=== PATIENT | male | born 1940 | race Caucasian/White ===

== ENCOUNTER → 2021-10-10 16:15 | Outpatient (CLI) | payer MEDICARE, SELFPAY ==
--- NOTE | ~2021-10-10 | MR_ITS ---
EXAMINATION: MR lumbar spine wo con DATE: 10/10/2021 16:53 INDICATION: Lumbar radiculopathy. TECHNIQUE: Magnetic resonance imaging (MRI) of the lumbar spine was performed without intravenous con trast. Sequences included sagittal T2-weighted FSE, sagittal T2-weighted FS FSE, sagittal T1-weighted FSE, and axial T2-weighted FSE. COMPARISON: CT abdomen and pelvis 09/03/2018 FINDINGS: There is a chronic burst fracture of L1 with greater than 4/5 loss of height, changes of ve rtebroplasty, retropulsion of bone 7 mm into central spinal canal, mild central canal stenosis, and f ocal kyphosis. There is mildly decreased disc height at T11-T12. The distal spinal cord signal intens ity is normal. The conus medullaris is at L1. The following disc levels are specifically discussed: L1-L2: The disc does not extend beyond the endplate margin. There is moderate bilateral facet joint o steoarthritis. There is no neural foraminal stenosis. There is no central canal stenosis. L2-L3: The disc is bulging. There is mild bilateral facet joint osteoarthritis. There is mild bilater al neural foraminal stenosis. There is mild central canal stenosis. L3-L4: The disc is bulging. There is moderate right and mild left facet joint osteoarthritis. There i s mild bilateral neural foraminal stenosis. There is no central canal stenosis. L4-L5: The disc is bulging and has an annular fissure. There is moderate bilateral facet joint osteoa rthritis. There is mild bilateral neural foraminal stenosis. There is no central canal stenosis. L5-S1: The disc does not extend beyond the endplate margin. There is severe bilateral facet joint ost eoarthritis. There is mild bilateral neural foraminal stenosis. There is no central canal stenosis. IMPRESSION: 1. Mild lumbar spondylosis. Reviewed, dictated and finalized at location A. IMPRESSION: 1. Mild lumbar spondylosis.
== END ==
PROVIDERS: PCP Internal Medicine; Visit Provider Nurse Practitioner Adult Health
DX: M54.16 Radiculopathy, lumbar region (principal); M47.816 Spondylosis without myelopathy or radiculopathy, lumbar region
CPT/HCPCS: 72148

== ENCOUNTER 2021-12-07 08:01 | Inpatient (IN) | payer MEDICARE, SELFPAY ==
[2021-12-07] VITALS (9 sets, daily range): BP systolic 123–129; BP diastolic 63–77; PULSE 70–112; RESP 15–26; TEMP 36.3–37; O2SAT 89–97; BMI 29.6
--- NOTE | ~2021-12-07 | XR_ITS ---
XR chest 1V portable DATE: 12/07/2021 08:17 INDICATION: Hypoxia. Covid-positive. TECHNIQUE: Portable AP chest on 12/07/2021 at 0811 hours COMPARISON: 04/29/2006 2 view chest FINDINGS: Normal heart size. There is minimal aortic tortuosity. No hilar or mediastinal enlargement. No pulmonary infiltrate or consolidation, pleural effusion or pulmonary vascular congestion or pneumo thorax is evident. Osteopenia. Degenerative change of the thoracic spine. IMPRESSION: No active cardiopulmonary disease Reviewed, dictated and finalized at location A.
--- NOTE | 2021-12-07 08:03 | ECG_ITS ---
Measurements Intervals [place] Rate: 111 P: 43 [place]: 145 QRS: -75 QRSD: 149 T: 37 QT: 351 QTc: 478 Interpretive Statements SINUS TACHYCARDIA RIGHT BUNDLE BRANCH BLOCK LEFT ANTERIOR FASCICU ABNORMAL ECGLAR BLOCK Electronically Signed On 12-07-2021 15:13:44 CDT by Bob Hinson D.O.
--- NOTE | 2021-12-07 08:04 | ED.WEAKNESS ---
HPI - Weakness General Chief complaint: Weakness Stated complaint: weakness, COVID+ Time Seen by Provider: 12/07/21 08:03 History of Present Illness HPI Narrative: 81-year-old male presents from home with recent diagnosis of COVID 1 week ago, he has been feeling weak, has not been able to keep anything down for the last few days, and having some mild shortness of breath, he finally came in because he was so weak that he fell about an hour ago at home, denies hitting his head, but did land on his back. He does have chronic back pain but otherwise denies pain anywhere else Related Data Allergies Allergy/AdvReac Type Severity Reaction Status Date / Time No Known Allergies Allergy Verified 12/07/21 08:15 Review of Systems Review of Systems: CONST: Occasional chills HEENT: No head trauma C/V: No chest pain RESP: Mild shortness of breath GI: Nausea, vomiting, diarrhea : No dysuria. M/S: Chronic back pain SKIN: No rash. NEURO: No focal numbness or weakness PSYCH: [No depression] [facility] Past Medical History Medical History Parkinsons disease Surgical History Surgical History Hx of cholecystectomy Social History Social History Smoking status: Never smoker Exam Narrative: EXAMINATION OF ORGAN SYSTEMS/BODY AREAS: Constitutional: Vital signs per nursing GENERAL:[No acute distress, non-toxic appearing.] HEAD: Normal with no signs of head trauma. EYES: EOMI, conjunctiva normal ENT: Hearing grossly intact LUNGS: Nonlabored breathing. No audible wheezing. HEART: [Regular rate and rhythm] ABD: [Soft], no tenderness to palpation EXT: Normal range of motion SKIN: No obvious large abrasions or bruising NEURO: [Alert. No gross focal sensory or strength deficits.] PSYCH: Normal affect Course Vital Signs Vital signs: Vital Signs Temperature 98.6 F 12/07/21 07:59 Pulse Rate 112 H 12/07/21 07:59 Respiratory Rate 20 12/07/21 07:59 Blood Pressure 127/77 12/07/21 07:59 Pulse Oximetry 89 L 12/07/21 07:59 Oxygen Delivery Room Air 12/07/21 07:59 Temperature 98.6 F 12/07/21 07:59 Pulse Rate 107 H 12/07/21 08:14 Respiratory Rate 26 H 12/07/21 08:14 Blood Pressure 127/77 12/07/21 07:59 Pulse Oximetry 92 12/07/21 08:14 Oxygen Delivery Nasal Cannula 12/07/21 08:13 Oxygen Flow Rate 2 12/07/21 08:13 MDM - Weakness MDM Narrative Medical decision making narrative: 81-year-old male presenting with generalized weakness and fall after recent diagnosis of COVID, vitals notable for hypoxia and tachycardia, suspect likely from COVID-pneumonia, also considered PE but patient denies any chest pain and I suspect hypoxia and tachycardia most likely due to dehydration and COVID-pneumonia. Doubt any acute intra-abdominal abnormality without tenderness to palpation. Patient is treated with IV fluids, Zofran, started on Decadron. He is placed on oxygen. Lab significant for elevated lactate, leukocytosis. By my interpretation chest x-ray findings do not seem significant enough to explain his hypoxia, he does have a right bundle branch block and right axis deviation on EKG though I do not prior to compare to, I do therefore add a D-dimer. Case discussed with hospitalist Dr Blackwell for admission. Differential Diagnosis Differential diagnosis: Likely sepsis, dehydration and other Lab Data Result diagrams: 12/07/21 08:08 12/07/21 08:08 Labs: Lab Results 12/07/21 12/07/21 12/07/21 Range/Units 08:08 08:08 08:08 WBC 14.5 H (4.5-10.0) K/mm3 RBC 4.72 (4.6-6.20) M/mm3 Hgb 14.2 (14.0-18.0) g/dL Hct 40.8 L (42.0-52.0) % MCV 86.4 (80-100) fl MCH 30.1 (26-34) pg MCHC 34.8 (32-36) g/dl RDW 12.7 (11.5-14.5) % Plt Count 194 (150-375) k/mm3 MPV 9.5 (7.4-10.4) fl Immature Gran
[2021-12-07 08:21] LABS: Basophils Percent Auto 0.2 % (0.2-1.2); Eosinophils Absolute Auto 0.1 K/mm3 (0-0.3); Eosinophils Percent Auto 0.6 % (0-4.4); Hematocrit 40.8 % (42.0-52.0); Hemoglobin 14.2 g/dL (14.0-18.0); Immature Granulocyte Absolute 0.06 K/mm3 (0.00-0.031); Immature Granulocyte Percent A 0.4 % (0-0.5); Lymphocytes Absolute Auto 2.49 K/mm3 (0.9-3.2); Lymphocytes Percent Auto 17.2 % (18.3-44.2); Mean Corpuscular HGB Conc 34.8 g/dl (32-36); Mean Corpuscular Hemoglobin 30.1 pg (26-34); Mean Corpuscular Volume 86.4 fl (80-100); Mean Platelet Volume 9.5 fl (7.4-10.4); Monocytes Absolute Auto 1.2 K/mm3 (0.1-0.6); Neutrophils Absolute Auto 10.6 K/mm3 (1.3-6.7); Neutrophils Percent Auto 73.6 % (45.5-73.1); Platelet Count Result 194 k/mm3 (150-375); Red Blood Count 4.72 M/mm3 (4.6-6.20); Red Cell Distribution Width 12.7 % (11.5-14.5); White Blood Count 14.5 K/mm3 (4.5-10.0)
[2021-12-07 08:28] LABS: Alanine Aminotransferase 23 U/L (6-50); Alkaline Phosphatase 69 U/L (38-126); Anion Gap 12 mmol/L (8-16); Aspartate Amino Transferase 24 U/L (17-59); Bilirubin,Total 1.7 mg/dL (0.2-1.3); Blood Urea Nitrogen 13 mg/dL (9-20); Calcium 8.4 mg/dL (8.4-10.2); Carbon Dioxide 23 mmol/L (22-30); Chloride 104 mmol/L (98-107); Estimated CRCL calculation 49 ml/min; Estimated Glomerular Filt Rate 58; Glucose 185 mg/dL (65-110); Potassium 3.8 mmol/L (3.4-5.0); Sodium 139 mmol/L (137-145)
[2021-12-07 08:29] LABS: Lactic Acid Reflex 3.5 mmol/L (0.7-2.0)
[2021-12-07] MEDS: SODIUM CHLORIDE 0.9% IV 1,000 ML 999 ML IV CONT (08:30)
[2021-12-07] MEDS: ONDANSETRON INJ 4 MG/2 ML VIAL IV PUSH (08:30)
[2021-12-07 08:40] LABS: Troponin I < 0.012 ng/mL (0.000-0.034)
[2021-12-07 08:57] LABS: SARS-CoV-2 RNA PCR Positive
[2021-12-07 09:10] LABS: D Dimer 0.34 ug/mL (<0.48)
[2021-12-07] MEDS: LACTATED RINGERS 1,000 ML 999 ML IV CONT (09:16)
--- NOTE | 2021-12-07 10:47 | PC.NURSE ---
pt declined straight cath for urine, attempted by giving urinal and has had 2 L of IV fluids
[2021-12-07 11:16] LABS: Reflex Lactic Acid Yes or No Add Lactic
[2021-12-07 12:00] LABS: Lactic Acid 1.1 mmol/L (0.7-2.0)
--- NOTE | 2021-12-07 12:42 | ADMGEN ---
This patient, Siri Greenfield, was admitted to [facility] Room 316-01 at 1100am. Patient transported by bed. Patient/family oriented to hospital policies and general routines including ID bracelet, bed and alarms, visiting hours, pain management, procedures, bathroom and other care routines, personal items, smoking policy, room service/diet, and visiting hours. Information on how to activate the Rapid Response Team has been discussed. Patient/Family are encouraged to report perceived risks to care and to ask questions if they do not understand what they are told or what they should do.
[2021-12-07 13:30] LABS: Procalcitonin 0.3 ng/mL
[2021-12-07] MEDS: ENOXAPARIN 40 MG/0.4 ML SYRINGE SUB-Q (17:25)
[2021-12-07] MEDS: CARBIDOPA/LEVODOPA 10/100 MG TABLET 1 TABLET PO (17:25)
[2021-12-07] MEDS: INSULIN ASPART (*BKC) 100 UNITS/ML SUB-Q (17:29)
[2021-12-07 17:39] LABS: Glucose Point of Care 310 mg/dl (65-105)
[2021-12-07 18:02] LABS: Appearance Urine Clear (Clear); Bilirubin Urine Negative (Negative); Blood Urine Negative (Negative); Color Urine Yellow (Yellow); Glucose Urine UA 2+ mg/dL (Negative); Ketones Urine Negative (Negative); Leukocyte Esterase Ur Negative LEU/UL (Negative); Nitrate Urine Negative (Negative); Protein Urine Negative (Negative); Specific Grav Ur 1.015 (1.001-1.035); pH Urine 5.5 (5.0-9.0)
[2021-12-07 18:14] LABS: Bacteria Urine Trace /hpf; Mucus Urine Rare /lpf; RBC Urine 0-2 /hpf (0-2); WBC Urine 0-3 /hpf
[2021-12-07 18:17] LABS: Add Urine Microscopic? YES
--- NOTE | 2021-12-07 18:30 | PM.IMHP ---
H&P: HPI History of Present Illness Date/Time: Patient was placed observation status for expected length of stay less than 23 hours for management, will plan to re-evaluate tomorrow for improvement. 12/07/21 18:30 Chief Complaint: Fall Narrative: Mr. Greenfield is a 81-year-old gentleman who presented to the emergency room with complaints of falling this morning. Patient states that he was walking and he was incontinent of urine and then slipped in his urine and fell. Patient does not recall hitting his head. Patient denies any loss of consciousness. Patient denied any lightheadedness, dizziness, syncopal, or near syncopal episodes preceding the event. Patient denies any chest discomfort or palpitations. Patient states he has had weakness for approximately 1 month. Patient states he was diagnosed with COVID 8 days ago. Per emergency room records patient was noted to have an oxygen saturation of 89% on room air by EMS and was placed on oxygen 2 L per nasal cannula. At this point time patient's oxygen saturations are 98% on oxygen at 2 L per nasal cannula. Patient is denying any shortness of breath. Patient states he has not had any fever chills at home. Patient states he has had a mild cough no sputum production. Patient denies any chest pain. Patient has a known history of hypertension, diabetes mellitus, hypothyroidism, Parkinson's disease, dyslipidemia and BPH. Review of Systems Review of Systems: A 12 point review of systems was completed patient all pertinent positive and negative per HPI the remainder are unremarkable. [facility] Past Medical History Medical History (Updated 12/07/21 @ 18:38 by Maribell Nicholson APRN) Diabetes mellitus GERD (gastroesophageal reflux disease) Hypertension Hypothyroidism Parkinsons disease Surgical History Surgical History Hx of cholecystectomy Family History Family History (Updated 12/07/21 @ 14:32 by Jacqueline Arciniega RN) Father Acute myocardial infarction Mother Acute myocardial infarction due to acute myocardial infarction Social History Social History Smoking status: Never smoker Alcohol intake: current Drinks per week: 2 Substance use: never Substance use type: does not use Spiritual care concerns: No Meds Home Medications and Allergies Home Medications Medication Instructions Recorded Confirmed Type aspirin 81 mg capsule 81 mg PO DAILY 12/07/21 12/07/21 History atorvastatin 40 mg tablet 40 mg PO DAILY 12/07/21 12/07/21 History bisacodyl 10 mg rectal suppository 10 mg RECTAL DAILY PRN Constipation 12/07/21 12/07/21 History (Dulcolax (bisacodyl)) carbidopa 10 mg-levodopa 100 mg 1 tablet PO BID 12/07/21 12/07/21 History tablet cholecalciferol (vitamin D3) 25 75 mcg PO DAILY 12/07/21 12/07/21 History mcg (1,000 unit) tablet (Vitamin D3) cyanocobalamin (vitamin B-12) 3,000 mcg PO DAILY 12/07/21 12/07/21 History 1,000 mcg tablet (Vitamin B-12) escitalopram oxalate 20 mg tablet 20 mg PO DAILY 12/07/21 12/07/21 History fexofenadine 180 mg tablet 180 mg PO DAILY 12/07/21 12/07/21 History finasteride 5 mg tablet 5 mg PO DAILY 12/07/21 12/07/21 History fluticasone propionate 50 1 spray intranasal Q12H 12/07/21 12/07/21 History mcg/actuation nasal spray,suspension gabapentin 600 mg tablet 600 mg PO DAILY 12/07/21 12/07/21 History insulin glargine 100 unit/mL (3 40 unit subcut DAILY 12/07/21 12/07/21 History mL) subcutaneous pen (Lantus Solostar U-100 Insulin) levothyroxine 88 mcg tablet 1 tablet PO DAILY 12/07/21 12/07/21 History lorazepam 0.5 mg tablet 0.5 mg PO BID PRN Anxiety 12/07/21 12/07/21 History melatonin 10 mg tablet 20 mg PO HS 12/07/21 12/07/21 History metformin 500 mg tablet 500 mg PO BID 12/07/21 12/07/21 History tamsulosin 0.4 mg capsule 1 cap PO DAILY 12/07/21 12/07/21 History trazodone 100 mg t
[2021-12-07 20:22] LABS: Glucose Point of Care 342 mg/dl (65-105)
[2021-12-07] MEDS: MELATONIN 5 MG TABLET 20 MG PO (21:05)
[2021-12-07] MEDS: FLUTICASONE PROPIONATE 0.05% NA SPR 16 GM BTL (*BKC) 1 SPRAY NASAL (21:05)
[2021-12-07] MEDS: traZODone HCL 50 MG TABLET 100 MG PO (21:05)
[2021-12-08] VITALS (7 sets, daily range): BP systolic 108–161; BP diastolic 49–91; PULSE 54–80; RESP 16–20; TEMP 36.1–36.9; O2SAT 93–96
[2021-12-08 05:58] LABS: Basophils Percent Auto 0.1 % (0.2-1.2); Eosinophils Percent Auto 0.1 % (0-4.4); Hematocrit 37.7 % (42.0-52.0); Immature Granulocyte Absolute 0.07 K/mm3 (0.00-0.031); Immature Granulocyte Percent A 0.5 % (0-0.5); Lymphocytes Absolute Auto 1.19 K/mm3 (0.9-3.2); Lymphocytes Percent Auto 8.7 % (18.3-44.2); Mean Corpuscular HGB Conc 34.5 g/dl (32-36); Mean Corpuscular Hemoglobin 30.2 pg (26-34); Mean Corpuscular Volume 87.5 fl (80-100); Mean Platelet Volume 10.5 fl (7.4-10.4); Monocytes Absolute Auto 0.8 K/mm3 (0.1-0.6); Neutrophils Absolute Auto 11.6 K/mm3 (1.3-6.7); Neutrophils Percent Auto 84.6 % (45.5-73.1); Platelet Count Result 180 k/mm3 (150-375); Red Blood Count 4.31 M/mm3 (4.6-6.20); Red Cell Distribution Width 12.8 % (11.5-14.5); White Blood Count 13.7 K/mm3 (4.5-10.0)
[2021-12-08] MEDS: LEVOTHYROXINE SODIUM 88 MCG TABLET PO (06:03)
[2021-12-08 07:12] LABS: Alanine Aminotransferase 17 U/L (6-50); Albumin Level 3.5 g/dL (3.5-5.1); Alkaline Phosphatase 56 U/L (38-126); Anion Gap 4 mmol/L (8-16); Aspartate Amino Transferase 22 U/L (17-59); Bilirubin,Total 0.8 mg/dL (0.2-1.3); Blood Urea Nitrogen 24 mg/dL (9-20); Calcium 7.8 mg/dL (8.4-10.2); Carbon Dioxide 31 mmol/L (22-30); Chloride 101 mmol/L (98-107); Estimated CRCL calculation 43 ml/min; Estimated Glomerular Filt Rate 58; Glucose 282 mg/dL (65-110); Magnesium 1.2 mg/dL (1.6-2.3); Potassium 5.4 mmol/L (3.4-5.0); Sodium 136 mmol/L (137-145)
[2021-12-08 07:51] LABS: Glucose Point of Care 290 mg/dl (65-105)
[2021-12-08] MEDS: INSULIN ASPART (*BKC) 100 UNITS/ML SUB-Q ×3 (08:38→17:06)
[2021-12-08] MEDS: CHOLECALCIFEROL 1,000 UNITS TABLET 3000 UNITS PO (08:41)
[2021-12-08] MEDS: LORATADINE 10 MG TABLET PO (08:41)
[2021-12-08] MEDS: CARBIDOPA/LEVODOPA 10/100 MG TABLET 1 TABLET PO ×2 (08:41→17:06)
[2021-12-08] MEDS: ASPIRIN 81 MG CHEWABLE TABLET PO (08:41)
[2021-12-08] MEDS: ATORVASTATIN 40 MG TABLET PO (08:41)
[2021-12-08] MEDS: GABAPENTIN 300 MG CAPSULE 600 MG PO (08:41)
[2021-12-08] MEDS: TAMSULOSIN HCL 0.4 MG CAPSULE PO (08:41)
[2021-12-08] MEDS: FINASTERIDE 5 MG TABLET PO (08:41)
[2021-12-08] MEDS: ESCITALOPRAM OXALATE 10 MG TABLET 20 MG PO (08:41)
[2021-12-08] MEDS: CYANOCOBALAMIN 1,000 MCG TABLET 3000 MCG PO (08:42)
[2021-12-08] MEDS: FLUTICASONE PROPIONATE 0.05% NA SPR 16 GM BTL (*BKC) 1 SPRAY NASAL ×2 (08:42→20:20)
[2021-12-08] MEDS: DEXAMETHASONE SOD PHOS INJ 4 MG/ML VIAL 6 MG IV PUSH (08:42)
[2021-12-08] MEDS: INSULIN GLARGINE (*BKC) 100 UNITS/ML 40 UNITS SUB-Q (08:43)
[2021-12-08] MEDS: MAGNESIUM SULF 4 GM/WATER100ML 4 GM/100 ML BAG IVPB (10:47)
[2021-12-08] MEDS: BENZONATATE 100 MG CAPSULE 200 MG PO ×2 (10:47→17:06)
[2021-12-08] MEDS: guaiFENesin 12 HR 600 MG TABCR PO ×2 (10:47→20:21)
[2021-12-08 11:39] LABS: Glucose Point of Care 352 mg/dl (65-105)
[2021-12-08 13:04] LABS: Anion Gap 5 mmol/L (8-16); Blood Urea Nitrogen 25 mg/dL (9-20); Calcium 7.6 mg/dL (8.4-10.2); Carbon Dioxide 27 mmol/L (22-30); Chloride 101 mmol/L (98-107); Estimated CRCL calculation 47 ml/min; Estimated Glomerular Filt Rate > 60; Glucose 387 mg/dL (65-110); Magnesium 2.6 mg/dL (1.6-2.3); Potassium 4.6 mmol/L (3.4-5.0); Sodium 133 mmol/L (137-145)
--- NOTE | 2021-12-08 13:07 | PM.IMPN ---
Progress Note: A&P Assessment and Plan (1) Acute respiratory failure with hypoxia: Code(s): J96.01 - Acute respiratory failure with hypoxia Status: Acute Assessment and Plan: patient's hypoxia has significantly improved. oxygen is being titrated without difficulty. Will continue with dexamethasone as patient was already given 1 dose. There is no need for any remdesivir since patient's hypoxia significantly improved. Patient's chest x-ray is clear. (2) Parkinsons disease: Code(s): G20 - Parkinson's disease Status: Acute Assessment and Plan: Will resume patient's home antiparkinson medication once we have verified medication list. (3) Dehydration: Code(s): E86.0 - Dehydration Status: Acute Assessment and Plan: Patient received 2 L of IV fluids in the emergency room. Patient is drinking without difficulty at this time. Will reassess laboratories in the morning. Will also monitor intake and output. Additional Plan 12/08/2021 interval history: patient with shortness of breath most likely secondary to COVID-19 pneumonia patient is being treated with dexamethasone, patient clinically symptoms are improved is able to ambulate with physical therapy, patient does complain persistent cough will start the patient on Tessalon and guaifenesin will continue to monitor, and will need a home O2 eval before discharge. Subjective Date/time seen: 12/08/21 13:07 HPI Mr. Greenfield? is a 81-year-old gentleman who presented to the emergency room with complaints of falling this morning.? Patient states that he was walking and he was incontinent of urine and then slipped in his urine and fell.? Patient does not recall hitting his head.? Patient denies any loss of consciousness.? Patient denied any lightheadedness, dizziness, syncopal, or near syncopal episodes preceding the event.? Patient denies any chest discomfort or palpitations.? Patient states he has had weakness for approximately 1 month.? Patient states he was diagnosed with COVID 8 days ago.? Per emergency room records patient was noted to have an oxygen saturation of 89% on room air by EMS and was placed on oxygen 2 L per nasal cannula.? At this point time patient's oxygen saturations are 98% on oxygen at 2 L per nasal cannula.? Patient is denying any shortness of breath.? Patient states he has not had any fever chills at home.? Patient states he has had a mild cough no sputum production.? Patient denies any chest pain. Patient has a known history of hypertension, diabetes mellitus, hypothyroidism, Parkinson's disease, dyslipidemia and BPH. 12/08/2021 interval history: patient with shortness of breath most likely secondary to COVID-19 pneumonia patient is being treated with dexamethasone, patient clinically symptoms are improved is able to ambulate with physical therapy, patient does complain persistent cough will start the patient on Tessalon and guaifenesin will continue to monitor, and will need a home O2 eval before discharge. Review of Systems Review of Systems: A 12 point review of systems was completed patient all pertinent positive and negative per HPI the remainder are unremarkable. Exam Narrative: Patient is comfortable, NAD HEENT: eyes are clear and none icteric LUNGS: normal respiratory effort ABD: distended Lower extremities: no edema SKIN: nonjaundiced Neuro: grossly intact. Objective Data Vital Signs Vital Signs: Vital Signs - 24 hr 12/07/21 14:00 12/07/21 22:00 12/08/21 05:43 Temperature 97.6 F 97.3 F L 97.2 F L Pulse Rate 80 70 80 Respiratory Rate 18 18 18 Blood Pressure 123/66 129/67 113/91 H Pulse Oximetry 94 96 95 Oxygen Delivery Oxygen Flow Rate 12/08/21 08:30 12/08/21 09:34 12/08/21 08:38 Temperature 97.1 F L Pulse Rate 63 Respiratory Rate 16 Blood Pressure 133/66 Pulse Oximetry 95 95 Oxygen Delivery Nasal Cannula Nasal Cannula Oxygen Flow Rate 2 2 12/08/21 10:25 05
[2021-12-08 16:13] LABS: Glucose Point of Care 353 mg/dl (65-105)
[2021-12-08] MEDS: ENOXAPARIN 40 MG/0.4 ML SYRINGE SUB-Q (17:06)
[2021-12-08] MEDS: traZODone HCL 50 MG TABLET 100 MG PO (20:20)
[2021-12-08] MEDS: MELATONIN 5 MG TABLET 20 MG PO (20:21)
[2021-12-08 20:30] LABS: Glucose Point of Care 464 mg/dl (65-105)
[2021-12-09] VITALS (12 sets, daily range): BP systolic 134–151; BP diastolic 82–91; PULSE 61–89; RESP 18–20; TEMP 35.7–36.7; O2SAT 89–96
[2021-12-09] MEDS: BENZONATATE 100 MG CAPSULE 200 MG PO ×3 (01:38→16:50)
[2021-12-09 01:39] LABS: Glucose Point of Care 296 mg/dl (65-105)
--- NOTE | 2021-12-09 01:45 | PC.NURSE ---
Pt HS BS 464. Will continue to monitor.
[2021-12-09] MEDS: LEVOTHYROXINE SODIUM 88 MCG TABLET PO (06:00)
[2021-12-09 07:40] LABS: Glucose Point of Care 228 mg/dl (65-105)
[2021-12-09 07:44] LABS: Hematocrit 37.9 % (42.0-52.0); Hemoglobin 13.6 g/dL (14.0-18.0); Mean Corpuscular HGB Conc 35.9 g/dl (32-36); Mean Corpuscular Hemoglobin 30.4 pg (26-34); Mean Corpuscular Volume 84.8 fl (80-100); Mean Platelet Volume 9.8 fl (7.4-10.4); Platelet Count Result 224 k/mm3 (150-375); Red Blood Count 4.47 M/mm3 (4.6-6.20); Red Cell Distribution Width 12.9 % (11.5-14.5); White Blood Count 13.6 K/mm3 (4.5-10.0)
[2021-12-09 07:55] LABS: Anion Gap 4 mmol/L (8-16); Blood Urea Nitrogen 23 mg/dL (9-20); Calcium 7.8 mg/dL (8.4-10.2); Carbon Dioxide 32 mmol/L (22-30); Chloride 103 mmol/L (98-107); Estimated CRCL calculation 51 ml/min; Estimated Glomerular Filt Rate > 60; Glucose 229 mg/dL (65-110); Potassium 4.3 mmol/L (3.4-5.0); Sodium 139 mmol/L (137-145)
[2021-12-09] MEDS: INSULIN ASPART (*BKC) 100 UNITS/ML SUB-Q ×4 (08:32→16:50)
[2021-12-09] MEDS: INSULIN GLARGINE (*BKC) 100 UNITS/ML 40 UNITS SUB-Q (08:32)
[2021-12-09] MEDS: DEXAMETHASONE SOD PHOS INJ 4 MG/ML VIAL 6 MG IV PUSH (08:35)
[2021-12-09] MEDS: ESCITALOPRAM OXALATE 10 MG TABLET 20 MG PO (08:37)
[2021-12-09] MEDS: CHOLECALCIFEROL 1,000 UNITS TABLET 3000 UNITS PO (08:37)
[2021-12-09] MEDS: GABAPENTIN 300 MG CAPSULE 600 MG PO (08:37)
[2021-12-09] MEDS: CYANOCOBALAMIN 1,000 MCG TABLET 3000 MCG PO (08:37)
[2021-12-09] MEDS: CARBIDOPA/LEVODOPA 10/100 MG TABLET 1 TABLET PO ×2 (08:37→16:50)
[2021-12-09] MEDS: LORATADINE 10 MG TABLET PO (08:38)
[2021-12-09] MEDS: FINASTERIDE 5 MG TABLET PO (08:38)
[2021-12-09] MEDS: ATORVASTATIN 40 MG TABLET PO (08:38)
[2021-12-09] MEDS: ASPIRIN 81 MG CHEWABLE TABLET PO (08:38)
[2021-12-09] MEDS: TAMSULOSIN HCL 0.4 MG CAPSULE PO (08:38)
[2021-12-09] MEDS: guaiFENesin 12 HR 600 MG TABCR PO ×2 (08:38→21:14)
[2021-12-09] MEDS: FLUTICASONE PROPIONATE 0.05% NA SPR 16 GM BTL (*BKC) 1 SPRAY NASAL (08:38)
--- NOTE | 2021-12-09 09:30 | PC.NURSE ---
home 02 study ordered per MD Streeter this morning, possible discharge once evaluation completed.
--- NOTE | 2021-12-09 09:32 | PC.NURSE ---
informed PFT lab that pt possible discharge home today and will need home o2 study prior to discharging.
--- NOTE | 2021-12-09 10:40 | PC.NURSE ---
pt to discharge home, home o2 study findings stable on ra, will need to work out MD Ferdinand isaac to discharge pt. Called [facility] [phone] to informed that pt will be able to discharge today. Awaiting call back.
--- NOTE | 2021-12-09 10:46 | PCRCNOTE ---
Home O2 eval done, walked with PT in room. Pt. does not requires home O2 at this time. RN notified.
--- NOTE | 2021-12-09 10:49 | PC.NURSE ---
per health care facility administrator [facility] Bar able to order picker pt in 1 hr.
--- NOTE | 2021-12-09 11:15 | PM.DS ---
DS: Summary Time Spent with Patient Time attestation: Total time spent providing and/or coordinating discharge services: DS: Data Data Completed and Pending Labs on day of discharge: Labs from last 24 hours 12/09/21 12/09/21 12/09/21 07:37 07:24 07:24 WBC 13.6 H RBC 4.47 L Hgb 13.6 L Hct 37.9 L MCV 84.8 MCH 30.4 MCHC 35.9 RDW 12.9 Plt Count 224 MPV 9.8 Sodium 139 Potassium 4.3 Chloride 103 Carbon Dioxide 32 H Anion Gap 4 L BUN 23 H Creatinine 1.00 Estim Creat Clear Calc 51 Estimated GFR > 60 Glucose 229 H POC Capillary Glucose 228 H Calcium 7.8 L Magnesium 2.0 12/09/21 12/08/21 12/08/21 01:35 20:06 16:09 WBC RBC Hgb Hct MCV MCH MCHC RDW Plt Count MPV Sodium Potassium Chloride Carbon Dioxide Anion Gap BUN Creatinine Estim Creat Clear Calc Estimated GFR Glucose POC Capillary Glucose 296 H 464 H 353 H Calcium Magnesium 12/08/21 12/08/21 12:46 11:34 WBC RBC Hgb Hct MCV MCH MCHC RDW Plt Count MPV Sodium 133 L Potassium 4.6 Chloride 101 Carbon Dioxide 27 Anion Gap 5 L BUN 25 H Creatinine 1.10 Estim Creat Clear Calc 47 Estimated GFR > 60 Glucose 387 H POC Capillary Glucose 352 H Calcium 7.6 L Magnesium 2.6 H Discharge Plan Discharge Attending physician on discharge: Jerald Wei Discharging Clinician: Jerald Wei Patient Disposition: Home Health Service Discharge Instructions: Per Care Coordination: Patient to have [facility] for RN/PT/OT eval and treat [phone]. RN please fax discharge instructions to [phone] patient to follow up with his primary care provider as soon as possible, patient is instructed if any symptoms worsen to go to nearest ER. Patient Instructions: Antibiotic Form, Aspirin (By mouth) Stand Alone Forms: General Discharge Information Follow-up/Referrals: Jair,Avery Fry MD [Primary Care Provider] - Discharge Medications: New benzonatate 100 mg Capsule 200 mg PO TID Qty: 30 0RF guaifenesin [Mucus Relief ER] 600 mg Tablet Extended Release 12hr 600 mg PO Q12HR Qty: 20 0RF prednisone 10 mg tablet 10 mg PO DAILY Qty: 48 0RF Rx Instructions: 6Tx2d, 5Tx2d, 4Tx2d, 3Tx3d, 2Tx3d 1Tx3d Continued atorvastatin 40 mg tablet 40 mg PO DAILY metformin 500 mg tablet 500 mg PO BID gabapentin 600 mg tablet 600 mg PO DAILY cyanocobalamin (vitamin B-12) [Vitamin B-12] 1,000 mcg Tablet 3,000 mcg PO DAILY fexofenadine [Nicole] 180 mg Tablet 180 mg PO DAILY levothyroxine 88 mcg tablet 1 tablet PO DAILY lorazepam 0.5 mg Tablet 0.5 mg PO BID PRN (Reason: Anxiety) tamsulosin 0.4 mg capsule 1 cap PO DAILY trazodone 100 mg tablet 100 mg PO HS bisacodyl [Dulcolax (bisacodyl)] 10 mg Suppository 10 mg RECTAL DAILY PRN (Reason: Constipation) carbidopa-levodopa 10-100 mg tablet 1 tablet PO BID fluticasone propionate [Flonase] 50 mcg/actuation [place],Suspension 1 spray INTRANASAL Q12H Rx Instructions: administer into each nostril finasteride 5 mg tablet 5 mg PO DAILY escitalopram oxalate 20 mg tablet 20 mg PO DAILY cholecalciferol (vitamin D3) [Vitamin D3] 25 mcg (1,000 unit) Tablet 75 mcg PO DAILY Lantus Solostar U-100 Insulin 100 unit/mL (3 mL) insulin pen 40 unit SUBCUT DAILY melatonin 10 mg Tablet 20 mg PO HS aspirin 81 mg Capsule 81 mg PO DAILY Date of admission: 12/09/21 08:32 Primary Care Provider: Jair,Avery Fry Admitting Provider: Patrick Blackwell Attending physician on admission: Patrick Blackwell Condition: Serious Quality VTE Prophylaxis VTE prophylaxis: mechanical ordered and pharmacologic ordered
--- NOTE | 2021-12-09 11:28 | PC.NURSE ---
per Md Streeter keep cash in place for retention informed [facility] to do voiding trail at [employer].
--- NOTE | 2021-12-09 11:43 | PC.NURSE ---
called [facility], agency informed to do voiding trail at pt home, home health agency stated about to do voiding trail tomorrow, included voiding trail in pt discharge orders. Pt informed home health to do voiding trail at pt home tomorrow per MD Streeter, if pt doesn't void within 6 hours, re-insert cash catheter for urinary retention.
[2021-12-09 11:44] LABS: Glucose Point of Care 423 mg/dl (65-105)
--- NOTE | 2021-12-09 11:54 | PC.NURSE ---
called [facility] pt bs too high for discharge, discharge cancelled per MD Streeter. Bs 423, 20 u lantus and additional 3 u novolog given, recheck in 2 orders.
[2021-12-09] MEDS: INSULIN GLARGINE (*BKC) 100 UNITS/ML 20 UNITS SUB-Q (12:02)
--- NOTE | 2021-12-09 13:51 | PM.IMPN ---
Progress Note: A&P Assessment and Plan (1) Acute respiratory failure with hypoxia: Code(s): J96.01 - Acute respiratory failure with hypoxia Status: Acute (2) Parkinsons disease: Code(s): G20 - Parkinson's disease Status: Acute (3) Dehydration: Code(s): E86.0 - Dehydration Status: Acute Additional Plan 12/08/2021 interval history: patient with shortness of breath most likely secondary to COVID-19 pneumonia patient is being treated with dexamethasone, patient clinically symptoms are improved is able to ambulate with physical therapy, patient does complain persistent cough will start the patient on Tessalon and guaifenesin will continue to monitor, and will need a home O2 eval before discharge. 12/09/2021 interval history: patient with shortness of breath most likely secondary to COVID-19 pneumonia patient is being treated with dexamethasone, patient clinically symptoms are improving, is able to ambulate with physical therapy, patient does complain persistent cough started the patient on Tessalon and guaifenesin, patient with history of diabetes on dexamethasone this morning patient blood sugars over 400, will taper dexamethasone to p.o. prednisone as patient's symptoms are improving and monitor patient, blood sugar will continue to monitor, and patient had a home O2 eval today does not require any oxygen may discharge the patient home tomorrow if the blood sugars are controlled. Subjective Date/time seen: 12/09/21 13:51 12/09/2021 interval history: patient with shortness of breath most likely secondary to COVID-19 pneumonia patient is being treated with dexamethasone, patient clinically symptoms are improving, is able to ambulate with physical therapy, patient does complain persistent cough started the patient on Tessalon and guaifenesin, patient with history of diabetes on dexamethasone this morning patient blood sugars over 400, will taper dexamethasone to p.o. prednisone as patient's symptoms are improving and monitor patient, blood sugar will continue to monitor, and patient had a home O2 eval today does not require any oxygen may discharge the patient home tomorrow if the blood sugars are controlled. Review of Systems Review of Systems: A 12 point review of systems was completed patient all pertinent positive and negative per HPI the remainder are unremarkable. Objective Data Vital Signs Vital Signs: Vital Signs - 24 hr 12/08/21 14:38 12/08/21 15:55 12/08/21 20:00 Temperature 97.5 F L 98.4 F Pulse Rate 54 L 76 Respiratory Rate 18 20 Blood Pressure 161/71 H 108/61 Pulse Oximetry 96 94 96 Oxygen Delivery Nasal Cannula Oxygen Flow Rate 2 12/09/21 00:37 12/09/21 00:00 12/09/21 04:00 Temperature 97.1 F L 97 F L Pulse Rate 61 83 Respiratory Rate 20 20 Blood Pressure 147/87 H 134/90 Pulse Oximetry 93 95 95 Oxygen Delivery Nasal Cannula Oxygen Flow Rate 2 12/09/21 08:00 12/09/21 08:37 12/09/21 09:47 Temperature 96.2 F L Pulse Rate 68 Respiratory Rate 20 Blood Pressure 143/91 H Pulse Oximetry 95 93 92 Oxygen Delivery Nasal Cannula Oxygen Flow Rate 2 12/09/21 09:47 12/09/21 08:00 12/09/21 10:20 Temperature Pulse Rate 68 68 67 Respiratory Rate 20 20 Blood Pressure Pulse Oximetry 92 92 91 Oxygen Delivery Room Air Room Air Room Air Oxygen Flow Rate 12/09/21 10:25 12/09/21 10:30 Temperature Pulse Rate 89 76 Respiratory Rate Blood Pressure Pulse Oximetry 89 L 91 Oxygen Delivery Room Air Room Air Oxygen Flow Rate Intake/Output Intake/Output: Intake & Output 12/06/21 12/07/21 12/08/21 12/09/21 23:59 23:59 23:59 23:59 Intake Total 2240 1000 500 Output Total 700 1750 800 Balance 9479 -217 -440 Meds/Results Medications: Active Medications Generic Name Dose Route Start Last Admin Trade Name Freq PRN Reason Stop Dose Admin Acetaminophen 650 mg 12/07/21 14:45 Acetaminophen 325 Mg T
[2021-12-09 14:06] LABS: Glucose Point of Care 398 mg/dl (65-105)
[2021-12-09] MEDS: INSULIN ASPART (*BKC) 100 UNITS/ML 10 UNITS SUB-Q (14:26)
--- NOTE | 2021-12-09 14:43 | PC.NURSE ---
bs 398 reported to MD Streeter, additional 10 units novolog given, recheck around 1600, lantus changed to 60 units daily and SSI changed 4-8units with meals
[2021-12-09 16:20] LABS: Glucose Point of Care 298 mg/dl (65-105)
--- NOTE | 2021-12-09 16:43 | PC.NURSE ---
voiced concern about pt urinary retention, voiding trail started, orders to re-insert cash if unable to urinate within 6 hours, urology consulted r/t pt urinary retention.
[2021-12-09] MEDS: metFORMIN HCL 500 MG TABLET PO (16:50)
[2021-12-09] MEDS: ENOXAPARIN 40 MG/0.4 ML SYRINGE SUB-Q (16:50)
--- NOTE | 2021-12-09 17:10 | PC.NURSE ---
Per MD Plascencia, do voiding trail at 6am tomorrow morning.
--- NOTE | 2021-12-09 17:12 | PC.NURSE ---
informed Alissa voiding trail schedule for tomorrow at 6am and urology to see pt tomorrow prior to discharging.
[2021-12-09] MEDS: MELATONIN 5 MG TABLET 20 MG PO (21:13)
[2021-12-09] MEDS: traZODone HCL 50 MG TABLET 100 MG PO (21:14)
[2021-12-09 21:23] LABS: Glucose Point of Care 247 mg/dl (65-105)
[2021-12-10 03:51] VITALS: BP 121/83; PULSE 71; RESP 18; TEMP 36.7; O2SAT 93
[2021-12-10] MEDS: LEVOTHYROXINE SODIUM 88 MCG TABLET PO (05:46)
[2021-12-10 06:34] LABS: Hematocrit 41.1 % (42.0-52.0); Hemoglobin 14.1 g/dL (14.0-18.0); Mean Corpuscular HGB Conc 34.3 g/dl (32-36); Mean Corpuscular Hemoglobin 30.4 pg (26-34); Mean Corpuscular Volume 88.6 fl (80-100); Mean Platelet Volume 9.5 fl (7.4-10.4); Platelet Count Result 298 k/mm3 (150-375); Red Blood Count 4.64 M/mm3 (4.6-6.20); White Blood Count 12.8 K/mm3 (4.5-10.0)
[2021-12-10 06:47] LABS: Anion Gap 9 mmol/L (8-16); Blood Urea Nitrogen 19 mg/dL (9-20); Calcium 8.3 mg/dL (8.4-10.2); Carbon Dioxide 30 mmol/L (22-30); Chloride 103 mmol/L (98-107); Estimated CRCL calculation 51 ml/min; Estimated Glomerular Filt Rate > 60; Glucose 118 mg/dL (65-110); Magnesium 1.8 mg/dL (1.6-2.3); Potassium 3.6 mmol/L (3.4-5.0); Sodium 142 mmol/L (137-145)
[2021-12-10 08:00] VITALS: PULSE 73; RESP 18; O2SAT 94
[2021-12-10 08:08] LABS: Glucose Point of Care 117 mg/dl (65-105)
[2021-12-10] MEDS: predniSONE 20 MG TABLET 60 MG PO (08:27)
[2021-12-10] MEDS: CYANOCOBALAMIN 1,000 MCG TABLET 3000 MCG PO (08:27)
[2021-12-10] MEDS: ASPIRIN 81 MG CHEWABLE TABLET PO (08:27)
[2021-12-10] MEDS: CHOLECALCIFEROL 1,000 UNITS TABLET 3000 UNITS PO (08:27)
[2021-12-10] MEDS: guaiFENesin 12 HR 600 MG TABCR PO (08:27)
[2021-12-10] MEDS: BENZONATATE 100 MG CAPSULE 200 MG PO ×2 (08:27→13:10)
[2021-12-10] MEDS: FINASTERIDE 5 MG TABLET PO (08:28)
[2021-12-10] MEDS: ESCITALOPRAM OXALATE 10 MG TABLET 20 MG PO (08:28)
[2021-12-10] MEDS: ATORVASTATIN 40 MG TABLET PO (08:28)
[2021-12-10] MEDS: GABAPENTIN 300 MG CAPSULE 600 MG PO (08:29)
[2021-12-10] MEDS: LORATADINE 10 MG TABLET PO (08:29)
[2021-12-10] MEDS: CARBIDOPA/LEVODOPA 10/100 MG TABLET 1 TABLET PO (08:29)
[2021-12-10] MEDS: TAMSULOSIN HCL 0.4 MG CAPSULE PO (08:30)
[2021-12-10] MEDS: FLUTICASONE PROPIONATE 0.05% NA SPR 16 GM BTL (*BKC) 1 SPRAY NASAL (08:30)
[2021-12-10] MEDS: metFORMIN HCL 500 MG TABLET PO (09:10)
[2021-12-10 09:15] VITALS: O2SAT 92
[2021-12-10 10:00] VITALS: BP 157/97; PULSE 73; RESP 18; TEMP 36.2; O2SAT 94
[2021-12-10] MEDS: INSULIN GLARGINE (*BKC) 100 UNITS/ML 60 UNITS SUB-Q (10:13)
--- NOTE | 2021-12-10 10:40 | PC.NURSE ---
called urology of [facility], pt is voiding after pulling cash this morning, pt has history of bph, pt has been continent and functionally incontinent this morning, continues to have difficulty with hesitancy and frequency of voiding.
[2021-12-10 10:57] LABS: Glucose Point of Care 170 mg/dl (65-105)
[2021-12-10 11:35] LABS: Glucose Point of Care 199 mg/dl (65-105)
--- NOTE | 2021-12-10 11:45 | PM.DS ---
DS: Admitting Diagnosis Discharge Date December 10, 2021 Admitting Diagnosis COVID DS: Discharge Diagnosis Discharge Diagnosis (1) Acute respiratory failure with hypoxia: Code(s): J96.01 - Acute respiratory failure with hypoxia Status: Acute Assessment and Plan: secondary to COVID. Improved. (2) Parkinsons disease: Code(s): G20 - Parkinson's disease Status: Acute Assessment and Plan: chronic unstable (3) Dehydration: Code(s): E86.0 - Dehydration Status: Acute Assessment and Plan: resolved DS: Summary Hospital Course Hospital Course: patient was admitted for hypoxia and shortness of breath. Found have COVID. Put on conservative management did well. Now requiring no oxygen and is able to ambulate without any issues. He can be discharged home. Maurizio Guillory yes to that for 6 Time Spent with Patient Time attestation: Total time spent providing and/or coordinating discharge services: Greater than 30 min DS: Data Data Completed and Pending Labs on day of discharge: Labs from last 24 hours 12/10/21 12/10/21 12/10/21 11:31 10:13 08:05 WBC RBC Hgb Hct MCV MCH MCHC RDW Plt Count MPV Sodium Potassium Chloride Carbon Dioxide Anion Gap BUN Creatinine Estim Creat Clear Calc Estimated GFR Glucose POC Capillary Glucose 199 H 170 H 117 H Calcium Magnesium 12/10/21 12/10/21 12/09/21 06:04 06:04 21:17 WBC 12.8 H RBC 4.64 Hgb 14.1 Hct 41.1 L MCV 88.6 MCH 30.4 MCHC 34.3 RDW 13.0 Plt Count 298 MPV 9.5 Sodium 142 Potassium 3.6 Chloride 103 Carbon Dioxide 30 Anion Gap 9 BUN 19 Creatinine 1.00 Estim Creat Clear Calc 51 Estimated GFR > 60 Glucose 118 H POC Capillary Glucose 247 H Calcium 8.3 L Magnesium 1.8 12/09/21 12/09/21 16:15 14:03 WBC RBC Hgb Hct MCV MCH MCHC RDW Plt Count MPV Sodium Potassium Chloride Carbon Dioxide Anion Gap BUN Creatinine Estim Creat Clear Calc Estimated GFR Glucose POC Capillary Glucose 298 H 398 H Calcium Magnesium Discharge Plan Discharge Attending physician on discharge: Jerald Wei Consulting providers: Ramu Plascencia Discharging Clinician: Jerald Wei Patient Disposition: Home Health Service Activity: other - see discharge instructions Diet: as tolerated Wound Care Instructions: other - see discharge instructions Discharge Instructions: Per Care Coordination: Patient to have [facility] for RN/PT/OT eval and treat [phone]. RN please fax discharge instructions to [phone] patient to follow up with his primary care provider as soon as possible, patient is instructed if any symptoms worsen to go to nearest ER. [facility] to do voiding trail at home per MD Streeter. [facility] to remove cash and perform voiding trail, if pt unable to void with 6 hours, re-insert cash r/t urinary retention. Patient Instructions: Antibiotic Form, Aspirin (By mouth) Stand Alone Forms: General Discharge Information Follow-up/Referrals: Jair,Avery Fry MD [Primary Care Provider] - Discharge Medications: New benzonatate 100 mg Capsule 200 mg PO TID Qty: 30 0RF guaifenesin [Mucus Relief ER] 600 mg Tablet Extended Release 12hr 600 mg PO Q12HR Qty: 20 0RF prednisone 10 mg tablet 10 mg PO DAILY Qty: 48 0RF Rx Instructions: 6Tx2d, 5Tx2d, 4Tx2d, 3Tx3d, 2Tx3d 1Tx3d Continued atorvastatin 40 mg tablet 40 mg PO DAILY metformin 500 mg tablet 500 mg PO BID gabapentin 600 mg tablet 600 mg PO DAILY cyanocobalamin (vitamin B-12) [Vitamin B-12] 1,000 mcg Tablet 3,000 mcg PO DAILY fexofenadine 180 mg Tablet 180 mg PO DAILY levothyroxine 88 mcg tablet 1 tablet PO DAILY
--- NOTE | 2021-12-10 12:47 | PC.NURSE ---
called [facility], will see pt before pt discharges today, called and update.
--- NOTE | 2021-12-10 13:07 | PC.NURSE ---
called Alissa pt to [facility], pt is discharging from hospital today. [phone]
--- NOTE | 2021-12-10 13:08 | PC.NURSE ---
Iv removed, discharge paper printed, awaiting to [facility].
--- NOTE | 2021-12-10 16:35 | WPDURCON ---
Assessment and Plan Assessment and plan (1) BPH (benign prostatic hyperplasia): Code(s): N40.0 - Benign prostatic hyperplasia without lower urinary tract symptoms Status: Acute Assessment and Plan: Continue Tamsulosin and Finasteride. Follow up in our office in 2 weeks for a bladder scan to ensure continued emptying of his bladder. NO further recommendations, ok to discharge home at any time. (2) Retention of urine, unspecified: Code(s): R33.9 - Retention of urine, unspecified Status: Acute Urology Consult Note HPI Date Seen: 12/10/21 Time Seen: 12:00 Requesting Physician: Patrick Blackwell MD Primary Care Provider: Avery Adam, Consult Narrative Reason for consult: Retention/BPH Narrative: Siri Greenfield is a 81 year old male who presented to the ER initially on 12/07/21 for SOB s/p COVID positive testing one week prior and a fall at home earlier that day. We were consulted d/t retention and the need for a catheter despite being on Tamsulosin and Finasteride. It is unclear who started him on his BPH medications, he is unsure and has not been seen by our practice. It is also unclear how much urine was drained upon catheter inserion. His catheter was removed this morning and he had a voiding trial which he passed today. He is urinating well and states he has no concerns. He is a poor historian and couldn't answer if he normally struggles to urinate at home or goes too often prior to his admission. His WBC was 12.8, creatinine 1.00, UA negative for UTI. Review of Systems Review of Systems: ROS unobtainable: Yes unobtainable due to mental status PMFSH Past Medical History Medical History Diabetes mellitus GERD (gastroesophageal reflux disease) Hypertension Hypothyroidism Parkinsons disease Surgical History Surgical History Hx of cholecystectomy Family History Family History Father Acute myocardial infarction Mother Acute myocardial infarction due to acute myocardial infarction Social History Social History Smoking status: Never smoker Alcohol intake: current Drinks per week: 2 Substance use: never Substance use type: does not use Spiritual care concerns: No Meds Home Medications and Allergies Home Medications Medication Instructions Recorded Confirmed Type aspirin 81 mg capsule 81 mg PO DAILY 12/07/21 12/07/21 History atorvastatin 40 mg tablet 40 mg PO DAILY 12/07/21 12/07/21 History bisacodyl 10 mg rectal suppository 10 mg RECTAL DAILY PRN Constipation 12/07/21 12/07/21 History (Dulcolax (bisacodyl)) carbidopa 10 mg-levodopa 100 mg 1 tablet PO BID 12/07/21 12/07/21 History tablet cholecalciferol (vitamin D3) 25 75 mcg PO DAILY 12/07/21 12/07/21 History mcg (1,000 unit) tablet (Vitamin D3) cyanocobalamin (vitamin B-12) 3,000 mcg PO DAILY 12/07/21 12/07/21 History 1,000 mcg tablet (Vitamin B-12) escitalopram oxalate 20 mg tablet 20 mg PO DAILY 12/07/21 12/07/21 History fexofenadine 180 mg tablet 180 mg PO DAILY 12/07/21 12/07/21 History finasteride 5 mg tablet 5 mg PO DAILY 12/07/21 12/07/21 History fluticasone propionate 50 1 spray intranasal Q12H 12/07/21 12/07/21 History mcg/actuation nasal spray,suspension gabapentin 600 mg tablet 600 mg PO DAILY 12/07/21 12/07/21 History insulin glargine 100 unit/mL (3 40 unit subcut DAILY 12/07/21 12/07/21 History mL) subcutaneous pen (Lantus Solostar U-100 Insulin) levothyroxine 88 mcg tablet 1 tablet PO DAILY 12/07/21 12/07/21 History lorazepam 0.5 mg tablet 0.5 mg PO BID PRN Anxiety 12/07/21 12/07/21 History melatonin 10 mg tablet 20 mg PO HS 12/07/21 12/07/21 History metformin 500 mg tablet 500 mg PO BID 12/07/21 12/07/21 History tamsulosi
== END 2021-12-10 14:40 | disposition home health service (06) | DRG 177 ==
LOC: ANHED 08:21 → ANH3MEDSUR 10:20
PROVIDERS: Family Medicine; Nurse Practitioner Adult Health; Admitting Provider Internal Medicine; Emergency Provider Emergency Medicine; PCP Internal Medicine; Visit Provider Chiropractor
DX: U07.1 COVID-19 (principal); J96.01 Acute respiratory failure with hypoxia; J12.82 Pneumonia due to coronavirus disease 2019; G20 Parkinson's disease; E86.0 Dehydration; E11.9 Type 2 diabetes mellitus without complications; I10 Essential (primary) hypertension; K21.9 Gastro-esophageal reflux disease without esophagitis; E03.9 Hypothyroidism, unspecified; Z79.4 Long term (current) use of insulin; Z79.82 Long term (current) use of aspirin; Z79.899 Other long term (current) drug therapy; Z82.49 Family history of ischemic heart disease and other diseases of the circulatory system; W19.XXXA Unspecified fall, initial encounter; R32 Unspecified urinary incontinence; R33.9 Retention of urine, unspecified; N40.1 Benign prostatic hyperplasia with lower urinary tract symptoms
CPT/HCPCS: 36415; 71045; 80048; 80053; 81001; 82948; 83605; 83735; 84145; 84484; 85025; 85027; 85380; 93005; 94618; 96361; 96365; 96372; 96375; 96376; 97116; 97161; 97165; 99285; A9270; C9803; G0378; J1100; J1650; J1815; J2405; J3475; J7030; J7120; J7512; U0003; U0005